=== PATIENT | female | born 1935 | race Hispanic/Latino ===

== ENCOUNTER → 2019-05-22 | Outpatient (CLI) | payer MEDICARE ==
[~2019-05-22] MED LIST: ALDACTONE25 MG PO; AMLODIPINE BESYL5 MG PO; LASIX20 MG PO; LIPITOR20 MG PO; METOPROLOL TART25 MG PO; PEPCID40 MG; POTASSIUM CHLO10 ME1 PO; POTASSIUM CHLO20 ME1; TORSEMIDE20 MG; WARFARIN SODIUM2 MG PO; WARFARIN SODIUM4 MG PO
--- NOTE | 2019-05-22 16:56 | Diagnostic Imaging Report ---
EXAMINATION: CHEST 2 VIEWS INDICATION: Shortness of breath COMPARISON: None FINDINGS: LINES/TUBES:Left chest pacemaker LUNGS:The lungs are well-inflated. No focal consolidation or pulmonary edema. PLEURA:No pleural effusion or pneumothorax. MEDIASTINUM:The heart is enlarged. Atherosclerotic calcifications of the thoracic aorta. Postoperative findings of prior CABG. BONES/SOFT TISSUES:Diffuse osteopenia. Loss of vertebral body height at multiple thoracic spine levels with prior vertebral augmentation at likely T10 and T11. ABDOMEN:No free air under the diaphragm. IMPRESSION: No focal pneumonia or pulmonary edema. Cardiomegaly Signed by: Bam Saucedo MD on 05/22/2019 4:53 PM
== END ==
LOC: RAD 15:59
PROVIDERS: ATTEND Internal Medicine Interventional Cardiology
DX: R06.02 Shortness of breath (principal); J90 Pleural effusion, not elsewhere classified
CPT/HCPCS: 71046

== ENCOUNTER 2020-10-22 09:49 | Inpatient (IN) | payer MEDICARE ==
[~2020-10-22] VITALS: Ht 139.7 cm; Wt 46.9 kg
[~2020-10-22 09:49] MED LIST changes: +FUROSEMIDE40 MG PO; +METOPROLOL SUCC50 MG PO; +POTASSIUM CITR10 MEQ PO; +XARELTO20 MG
[2020-10-22 10:13] LABS: BASOPHILS % 0.1 % (0.0-1.0); HEMATOCRIT 27.6 % (34.2-44.1); LYMPHOCYTES # (AUTO) 0.2 (1.0-3.2); LYMPHOCYTES % 1.1 % (18.0-39.1); MEAN CORPUSCULAR HEMOGLOBIN 25.2 pg (28-32); MEAN CORPUSCULAR HGB CONC 32.6 g/dL (31-35); MEAN CORPUSCULAR VOLUME 77.3 fL (81-99); MONOCYTES # (AUTO) 0.3 (0.2-0.8); MONOCYTES % 2.4 % (4.4-11.3); NEUTROPHILS # (AUTO) 13.6 (2.1-6.9); NEUTROPHILS % 95.6 % (38.7-80.0); PLATELET COUNT 324 x10e3/uL (140-360); RED BLOOD COUNT 3.57 x10e6/uL (3.6-5.1); RED CELL DISTRIBUTION WIDTH 15.5 % (11.7-14.4)
[2020-10-22 10:32] LABS: ALBUMIN 3.4 g/dL (3.5-5.0); ALBUMIN/GLOBULIN RATIO 0.9 (0.8-2.0); ANION GAP 16.6 mmol/L (8-16); CALCIUM 8.6 mg/dL (8.4-10.2); CREATININE, SERUM 1.68 mg/dL (0.57-1.11)
[2020-10-22 10:40] LABS: B-TYPE NATRIURETIC PEPTIDE2 1101.8 pg/mL (0-100)
[2020-10-22 10:46] LABS: POTASSIUM 1.6 mmol/L (3.5-5.1)
[2020-10-22] MEDS ORDERED: POTASSIUM CHLORIDE 20MEQ/100ML 200 ML IV ONE ×2 (11:00→22:30)
[2020-10-22 11:02] LABS: FREE THYROXINE INDEX 2.8052 (1.4-3.8); THYROID STIMULATING HORMONE 0.444 uIU/mL (0.350-4.940)
[2020-10-22] MEDS ORDERED: CEFEPIME 1GM/NS 0.9% 50 ML 50 ML IV STA (11:08)
[2020-10-22] MEDS ORDERED: CEFEPIME HCL 1GM 1 GM in SODIUM CHLORIDE 0.9% 50ML 50 ML IV SCH (11:15)
[2020-10-22 11:19] LABS: SALICYLATE < 5.0 mg/dL (0-30)
[2020-10-22 13:07] LABS: BURR CELLS SLIG; LYMPHOCYTES % (MANUAL) 4 % (19-48); MONOCYTES % (MANUAL) 4 % (3.4-9.0); NEUTROPHILS % (MANUAL) 92 % (40-74); PLATELET MORPHOLOGY COMMENT FEW LARGE; POLYCHROMASIA MODERATE
[2020-10-22 13:08] LABS: PLATELET ESTIMATE ADEQUATE
[2020-10-22 16:12] LABS: CLARITY,URINE CLEAR (CLEAR); COLOR,URINE YELLOW (YELLOW); KETONES,URINE NEGATIVE (NEGATIVE); LEUKOCYTE ESTERASE ,URINE NEGATIVE (NEGATIVE); NITRITE,URINE NEGATIVE (NEGATIVE); PROTEIN,URINE DIPSTICK NEGATIVE (NEGATIVE); URINE UROBILINOGEN 0.2 mg/dL (0.2 - 1)
[2020-10-22 16:13] LABS: AMPHETAMINES SCREEN,URINE NEGATIVE (NEGATIVE); BENZODIAZEPINES SCREEN,URINE NEGATIVE (NEGATIVE); PHENCYCLIDINE SCREEN,URINE NEGATIVE (NEGATIVE)
[2020-10-22] MEDS ORDERED: ONDANSETRON HCL INJ 2MG/ML 2ML 2 MG/ML VIAL IV NR (18:32)
[2020-10-22] MEDS ORDERED: DOCUSATE SODIUM 100 MG CAP PO PRN (18:45)
[2020-10-22] MEDS: SODIUM CHLORIDE 0.9% 1000ML 1,000 ML IV SCH (18:54)
[2020-10-22 21:30] VITALS: BP 90/49
[2020-10-22 21:43] LABS: BASOPHILS % 0.1 % (0.0-1.0); HEMOGLOBIN 7.4 g/dL (12.0-16.0); LYMPHOCYTES # (AUTO) 0.7 (1.0-3.2); LYMPHOCYTES % 3.9 % (18.0-39.1); MEAN CORPUSCULAR HEMOGLOBIN 25.8 pg (28-32); MEAN CORPUSCULAR HGB CONC 32.9 g/dL (31-35); MEAN CORPUSCULAR VOLUME 78.4 fL (81-99); MONOCYTES # (AUTO) 0.8 (0.2-0.8); MONOCYTES % 4.9 % (4.4-11.3); NEUTROPHILS # (AUTO) 15.4 (2.1-6.9); NEUTROPHILS % 90.5 % (38.7-80.0); PLATELET COUNT 244 x10e3/uL (140-360); RED BLOOD COUNT 2.87 x10e6/uL (3.6-5.1); RED CELL DISTRIBUTION WIDTH 15.8 % (11.7-14.4)
[2020-10-22 21:55] LABS: HEMATOCRIT 22.5 % (34.2-44.1)
[2020-10-22 22:06] LABS: ALBUMIN 2.6 g/dL (3.5-5.0); ALBUMIN/GLOBULIN RATIO 0.9 (0.8-2.0); ANION GAP 11.7 mmol/L (8-16); CALCIUM 7.8 mg/dL (8.4-10.2); CREATININE, SERUM 1.35 mg/dL (0.57-1.11)
[2020-10-22 22:07] LABS: POTASSIUM 1.7 mmol/L (3.5-5.1)
[2020-10-22 22:16] LABS: MAGNESIUM 1.3 MG/DL (1.3-2.1)
[2020-10-22] MEDS ORDERED: POTASSIUM CHLORIDE 20 MEQ TAB CR PO STA (22:25)
[2020-10-22 22:29] VITALS: BP 90/49
[2020-10-23 00:30] VITALS: BP 106/52
[2020-10-23] MEDS: ACETAMINOPHEN 325 MG TAB PO PRN (01:00)
[2020-10-23] MEDS ORDERED: POTASSIUM CHLORIDE 20 MEQ TAB CR PO SCH (04:00)
[2020-10-23 04:30] VITALS: BP 109/56
[2020-10-23 04:50] LABS: BASOPHILS % 0.1 % (0.0-1.0); EOSINOPHILS % 0.1 % (0.0-6.0); HEMATOCRIT 25.6 % (34.2-44.1); HEMOGLOBIN 8.3 g/dL (12.0-16.0); LYMPHOCYTES # (AUTO) 0.6 (1.0-3.2); MEAN CORPUSCULAR HEMOGLOBIN 25.5 pg (28-32); MEAN CORPUSCULAR HGB CONC 32.4 g/dL (31-35); MEAN CORPUSCULAR VOLUME 78.5 fL (81-99); MONOCYTES # (AUTO) 0.9 (0.2-0.8); MONOCYTES % 5.6 % (4.4-11.3); NEUTROPHILS # (AUTO) 13.8 (2.1-6.9); NEUTROPHILS % 89.6 % (38.7-80.0); PLATELET COUNT 271 x10e3/uL (140-360); RED BLOOD COUNT 3.26 x10e6/uL (3.6-5.1); RED CELL DISTRIBUTION WIDTH 15.8 % (11.7-14.4)
[2020-10-23 05:18] LABS: MAGNESIUM 1.4 MG/DL (1.3-2.1); PHOSPHORUS 3.4 MG/DL (2.3-4.7)
[2020-10-23 05:47] LABS: ANION GAP 14.4 mmol/L (8-16); CALCIUM 8.2 mg/dL (8.4-10.2); CREATININE, SERUM 1.39 mg/dL (0.57-1.11)
[2020-10-23 05:50] LABS: POTASSIUM 2.4 mmol/L (3.5-5.1)
[2020-10-23] MEDS ORDERED: POTASSIUM CHLORIDE 20 MEQ TAB CR PO STA (08:04)
[2020-10-23] MEDS ORDERED: POTASSIUM CHLORIDE 20MEQ/100ML 300 ML IV ONE (08:15)
[2020-10-23] MEDS: METOPROLOL SUCCINATE 50 MG TAB XL PO SCH (08:30)
[2020-10-23 08:39] LABS: CREATINE KINASE MB 1.3 ng/mL (0-5.0)
[2020-10-23] MEDS ORDERED: MAGNESIUM SULFATE 2GM/50ML 50 ML IV ONE (09:30)
[2020-10-23] MEDS: SODIUM CHLORIDE 0.9% 1000ML 1,000 ML IV SCH (10:24)
[2020-10-23] MEDS ORDERED: MAGNESIUM SULFATE 2GM/50ML IV ONE (11:00)
[2020-10-23] MEDS ORDERED: POTASSIUM PHOSPHATE 20 MM in SODIUM CHLORIDE 0.9% 250ML 250 ML IV SCH (11:00)
[2020-10-23] MEDS ORDERED: PIPERACILLIN/TAZO 2.25 GM 50 ML IV SCH (11:15)
[2020-10-23] MEDS ORDERED: AZITHROMYCIN 500MG/NS 250 ML 250 ML IV SCH (11:15)
[2020-10-23 13:10] VITALS: BP 110/55
[2020-10-23 14:16] LABS: CREATININE,URINE RANDOM 31.51 mg/dL (47-110)
[2020-10-23 14:26] VITALS: BP 110/55
[2020-10-23 16:00] VITALS: BP 100/69
[2020-10-23] MEDS: RIVAROXABAN 10 MG TABLET PO SCH (17:04)
[2020-10-23] MEDS: FAMOTIDINE 20 MG TAB PO SCH (17:04)
[2020-10-23 19:00] LABS: ANION GAP 14.4 mmol/L (8-16); CALCIUM 7.8 mg/dL (8.4-10.2); CREATININE, SERUM 1.32 mg/dL (0.57-1.11)
[2020-10-23 19:01] LABS: POTASSIUM 5.4 mmol/L (3.5-5.1)
[2020-10-23 19:19] LABS: CREATINE KINASE MB 1.3 ng/mL (0-5.0)
[2020-10-23] MEDS ORDERED: PIPERACILLIN/TAZOBACTAM SOD 2.25 GM VIAL ONE (19:59)
[2020-10-23 20:07] VITALS: BP 69/53
[2020-10-23] MEDS: PIPERACILLIN/TAZOBACTAM 2.25 GM in SODIUM CHLORIDE 0.9% 50ML 50 ML IV SCH (20:19)
[2020-10-24] VITALS (8 sets, daily range): BP systolic 91–124; BP diastolic 51–68
[2020-10-24] MEDS: SODIUM CHLORIDE 0.9% 1000ML 1,000 ML IV SCH (01:39)
[2020-10-24 04:38] LABS: BASOPHILS % 0.1 % (0.0-1.0); EOSINOPHILS # (AUTO) 0.1 (0.0-0.4); EOSINOPHILS % 0.9 % (0.0-6.0); HEMATOCRIT 23.5 % (34.2-44.1); HEMOGLOBIN 7.5 g/dL (12.0-16.0); LYMPHOCYTES # (AUTO) 0.8 (1.0-3.2); LYMPHOCYTES % 8.4 % (18.0-39.1); MEAN CORPUSCULAR HEMOGLOBIN 25.4 pg (28-32); MEAN CORPUSCULAR HGB CONC 31.9 g/dL (31-35); MEAN CORPUSCULAR VOLUME 79.7 fL (81-99); MONOCYTES # (AUTO) 0.8 (0.2-0.8); MONOCYTES % 8.2 % (4.4-11.3); NEUTROPHILS # (AUTO) 7.7 (2.1-6.9); NEUTROPHILS % 81.8 % (38.7-80.0); PLATELET COUNT 279 x10e3/uL (140-360); RED BLOOD COUNT 2.95 x10e6/uL (3.6-5.1); RED CELL DISTRIBUTION WIDTH 16.1 % (11.7-14.4)
[2020-10-24] MEDS: PIPERACILLIN/TAZOBACTAM 2.25 GM in SODIUM CHLORIDE 0.9% 50ML 50 ML IV SCH ×3 (04:51→19:29)
[2020-10-24 04:57] LABS: ALBUMIN 2.7 g/dL (3.5-5.0); ALBUMIN/GLOBULIN RATIO 0.9 (0.8-2.0); ANION GAP 12.3 mmol/L (8-16); CREATININE, SERUM 1.33 mg/dL (0.57-1.11); POTASSIUM 4.3 mmol/L (3.5-5.1)
[2020-10-24 05:21] LABS: MAGNESIUM 1.8 MG/DL (1.3-2.1)
[2020-10-24 05:33] LABS: THYROID STIMULATING HORMONE 0.536 uIU/mL (0.350-4.940)
[2020-10-24] MEDS: FAMOTIDINE 20 MG TAB PO SCH ×2 (08:20→16:13)
[2020-10-24] MEDS: METOPROLOL SUCCINATE 50 MG TAB XL PO SCH (09:00)
[2020-10-24] MEDS: RIVAROXABAN 10 MG TABLET PO SCH (16:13)
[2020-10-24] MEDS: ACETAMINOPHEN 325 MG TAB PO PRN (19:22)
[2020-10-24] MEDS ORDERED: SODIUM CHLORIDE 0.9% 50ML 50 ML ONE (19:33)
[2020-10-25] VITALS (7 sets, daily range): BP systolic 103–151; BP diastolic 48–67
[2020-10-25] MEDS: PIPERACILLIN/TAZOBACTAM 2.25 GM in SODIUM CHLORIDE 0.9% 50ML 50 ML IV SCH (03:59)
[2020-10-25 06:01] LABS: BASOPHILS % 0.1 % (0.0-1.0); EOSINOPHILS # (AUTO) 0.2 (0.0-0.4); EOSINOPHILS % 2.3 % (0.0-6.0); HEMOGLOBIN 7.1 g/dL (12.0-16.0); LYMPHOCYTES # (AUTO) 0.8 (1.0-3.2); MEAN CORPUSCULAR HEMOGLOBIN 25.7 pg (28-32); MEAN CORPUSCULAR HGB CONC 32.3 g/dL (31-35); MEAN CORPUSCULAR VOLUME 79.7 fL (81-99); MONOCYTES # (AUTO) 0.6 (0.2-0.8); MONOCYTES % 7.8 % (4.4-11.3); NEUTROPHILS # (AUTO) 5.9 (2.1-6.9); NEUTROPHILS % 77.9 % (38.7-80.0); PLATELET COUNT 269 x10e3/uL (140-360); RED BLOOD COUNT 2.76 x10e6/uL (3.6-5.1); RED CELL DISTRIBUTION WIDTH 16.2 % (11.7-14.4)
[2020-10-25 06:35] LABS: ANION GAP 11.1 mmol/L (8-16); CALCIUM 8.2 mg/dL (8.4-10.2); CREATININE, SERUM 1.05 mg/dL (0.57-1.11); POTASSIUM 3.1 mmol/L (3.5-5.1)
[2020-10-25 07:06] LABS: MAGNESIUM 1.6 MG/DL (1.3-2.1); PHOSPHORUS 2.7 MG/DL (2.3-4.7)
[2020-10-25] MEDS: METOPROLOL SUCCINATE 50 MG TAB XL PO SCH (09:20)
[2020-10-25] MEDS: FAMOTIDINE 20 MG TAB PO SCH ×2 (09:20→17:11)
[2020-10-25] MEDS ORDERED: POTASSIUM CHLORIDE 20 MEQ TAB CR PO ONE (09:30)
[2020-10-25] MEDS ORDERED: ACETAMINOPHEN 325 MG TAB PO STA (10:31)
[2020-10-25] MEDS ORDERED: SODIUM CHLORIDE 0.9% 250ML 250 ML IV ONE (10:45)
[2020-10-25] MEDS ORDERED: FUROSEMIDE INJ 10 MG/ML 2 ML VIAL IV PRN (10:45)
[2020-10-25] MEDS: FUROSEMIDE INJ 10 MG/ML 2 ML VIAL IV PRN ×2 (17:11→19:34)
[2020-10-25] MEDS: POTASSIUM CHLORIDE 20 MEQ TAB CR PO SCH (17:11)
[2020-10-25] MEDS: RIVAROXABAN 10 MG TABLET PO SCH (17:11)
[2020-10-26] VITALS (8 sets, daily range): BP systolic 124–159; BP diastolic 59–79
[2020-10-26 05:00] LABS: BASOPHILS % 0.3 % (0.0-1.0); EOSINOPHILS # (AUTO) 0.3 (0.0-0.4); EOSINOPHILS % 3.5 % (0.0-6.0); HEMATOCRIT 29.7 % (34.2-44.1); HEMOGLOBIN 9.6 g/dL (12.0-16.0); LYMPHOCYTES # (AUTO) 1.1 (1.0-3.2); MEAN CORPUSCULAR HEMOGLOBIN 26.2 pg (28-32); MEAN CORPUSCULAR HGB CONC 32.3 g/dL (31-35); MEAN CORPUSCULAR VOLUME 81.1 fL (81-99); MONOCYTES # (AUTO) 0.5 (0.2-0.8); NEUTROPHILS # (AUTO) 5.4 (2.1-6.9); NEUTROPHILS % 73.3 % (38.7-80.0); PLATELET COUNT 250 x10e3/uL (140-360); RED BLOOD COUNT 3.66 x10e6/uL (3.6-5.1); RED CELL DISTRIBUTION WIDTH 15.8 % (11.7-14.4)
[2020-10-26 05:50] LABS: ALBUMIN 2.9 g/dL (3.5-5.0); ALBUMIN/GLOBULIN RATIO 0.9 (0.8-2.0); ANION GAP 14.2 mmol/L (8-16); CALCIUM 8.8 mg/dL (8.4-10.2); CREATININE, SERUM 1.05 mg/dL (0.57-1.11); MAGNESIUM 1.5 MG/DL (1.3-2.1); POTASSIUM 3.2 mmol/L (3.5-5.1)
[2020-10-26] MEDS: FAMOTIDINE 20 MG TAB PO SCH ×2 (08:26→16:04)
[2020-10-26] MEDS: METOPROLOL SUCCINATE 50 MG TAB XL PO SCH (08:26)
[2020-10-26] MEDS: POTASSIUM CHLORIDE 20 MEQ TAB CR PO SCH ×2 (08:27→16:07)
[2020-10-26] MEDS: IRON SUCROSE 100 MG in SODIUM CHLORIDE 0.9% 100 ML 100 ML IV SCH (11:41)
[2020-10-26] MEDS ORDERED: POTASSIUM CHLORIDE 20 MEQ TAB CR PO STA (15:26)
[2020-10-26] MEDS ORDERED: MAGNESIUM SULFATE 2GM/50ML 50 ML IV ONE (15:30)
[2020-10-26] MEDS: FUROSEMIDE 40 MG TAB PO SCH (16:04)
[2020-10-26] MEDS: RIVAROXABAN 10 MG TABLET PO SCH (17:52)
[2020-10-27] VITALS: BP 144/69
[2020-10-27 04:00] VITALS: BP 113/67
[2020-10-27 06:03] LABS: ANION GAP 14.1 mmol/L (8-16); CALCIUM 8.9 mg/dL (8.4-10.2); CREATININE, SERUM 0.99 mg/dL (0.57-1.11); MAGNESIUM 1.6 MG/DL (1.3-2.1); POTASSIUM 3.1 mmol/L (3.5-5.1)
[2020-10-27 07:45] VITALS: BP 139/59
[2020-10-27 07:51] VITALS: BP 139/59
[2020-10-27] MEDS: FAMOTIDINE 20 MG TAB PO SCH (07:55)
[2020-10-27] MEDS: POTASSIUM CHLORIDE 20 MEQ TAB CR PO SCH (07:55)
[2020-10-27] MEDS: FUROSEMIDE 40 MG TAB PO SCH (07:55)
[2020-10-27] MEDS: METOPROLOL SUCCINATE 50 MG TAB XL PO SCH (07:56)
[2020-10-27] MEDS ORDERED: POTASSIUM CHLORIDE 10MEQ EA PO NR (10:00)
[2020-10-27] MEDS: IRON SUCROSE 100 MG in SODIUM CHLORIDE 0.9% 100 ML 100 ML IV SCH (11:27)
[2020-10-27 11:53] VITALS: BP 118/68
== END 2020-10-27 13:55 | disposition home or self-care (01) | DRG 682 ==
LOC: ER 10:43 → ERHOLD 12:19 → IMCU 10-23 12:43 → MED/SURG2 10-24 13:00
PROVIDERS: ADMIT Internal Medicine; ATTEND Internal Medicine
DX: N17.0 Acute kidney failure with tubular necrosis (principal); I50.23 Acute on chronic systolic (congestive) heart failure; E87.1 Hypo-osmolality and hyponatremia; I13.0 Hypertensive heart and chronic kidney disease with heart failure and stage 1 through stage 4 chronic kidney disease, or unspecified chronic kidney disease; E86.0 Dehydration; R41.0 Disorientation, unspecified; E87.6 Hypokalemia; T50.2X5A Adverse effect of carbonic-anhydrase inhibitors, benzothiadiazides and other diuretics, initial encounter; I25.10 Atherosclerotic heart disease of native coronary artery without angina pectoris; Z95.1 Presence of aortocoronary bypass graft; Z95.0 Presence of cardiac pacemaker; N18.30 Chronic kidney disease, stage 3 unspecified; Z20.822 Contact with and (suspected) exposure to COVID-19
CPT/HCPCS: 36415; 70450; 71045; 71250; 74176; 76770; 80048; 80053; 80307; 80320; 80329; 81001; 82140; 82270; 82550; 82553; 82570; 82607; 82746; 82948; 83540; 83605; 83735; 83880; 84100; 84300; 84436; 84443; 84466; 84479; 84484; 85025; 86850; 86900; 86920; 87040; 93005; 99285; J0456; J0692; J1756; J1940; J2543; J3475; J3480; J7030; J7050; P9016; U0002

== ENCOUNTER 2020-11-18 20:05 | Emergency (ER) | payer MEDICARE ==
[~2020-11-18] VITALS: Ht 139.7 cm; Wt 46.7 kg
[2020-11-18] MEDS ORDERED: ASPIRIN 81 MG CHEW TAB PO ONE (20:15)
[2020-11-18] MEDS ORDERED: SODIUM CHLORIDE 0.9% 1000ML 2,000 ML ONE (20:33)
[2020-11-18] MEDS ORDERED: SODIUM CHLORIDE 0.9% 1000ML 1,000 ML IV STA (20:34)
[2020-11-18] MEDS ORDERED: VANCOMYCIN 1GM/NS 250 ML 250 ML IV STA (20:34)
[2020-11-18 20:45] LABS: BASOPHILS % 0.1 % (0.0-1.0); EOSINOPHILS % 0.3 % (0.0-6.0); LYMPHOCYTES # (AUTO) 0.6 (1.0-3.2); LYMPHOCYTES % 8.5 % (18.0-39.1); MEAN CORPUSCULAR HEMOGLOBIN 26.9 pg (28-32); MEAN CORPUSCULAR HGB CONC 31.6 g/dL (31-35); MEAN CORPUSCULAR VOLUME 84.9 fL (81-99); MONOCYTES # (AUTO) 0.4 (0.2-0.8); MONOCYTES % 5.3 % (4.4-11.3); NEUTROPHILS # (AUTO) 6.2 (2.1-6.9); NEUTROPHILS % 85.3 % (38.7-80.0); PLATELET COUNT 224 x10e3/uL (140-360); RED BLOOD COUNT 1.86 x10e6/uL (3.6-5.1); RED CELL DISTRIBUTION WIDTH 19.3 % (11.7-14.4)
[2020-11-18] MEDS ORDERED: SODIUM CHLORIDE 0.9% 1000ML 1,000 ML IV SCH (20:45)
[2020-11-18 20:50] LABS: HEMATOCRIT 15.8 % (34.2-44.1)
[2020-11-18 21:01] LABS: ALBUMIN 2.6 g/dL (3.5-5.0); ALBUMIN/GLOBULIN RATIO 1.2 (0.8-2.0); ANION GAP 17.8 mmol/L (8-16); CALCIUM 7.9 mg/dL (8.4-10.2); CREATININE, SERUM 1.99 mg/dL (0.57-1.11)
[2020-11-18 21:06] LABS: POTASSIUM 2.8 mmol/L (3.5-5.1)
[2020-11-18 21:07] LABS: CREATINE KINASE MB 1.6 ng/mL (0-5.0)
[2020-11-18] MEDS ORDERED: POTASSIUM CHLORIDE 20 MEQ TAB CR PO STA ×2 (21:10→23:05)
[2020-11-18] MEDS ORDERED: SODIUM CHLORIDE 0.9% 250ML 250 ML IV ONE (21:15)
[2020-11-18] MEDS ORDERED: POTASSIUM CHLORIDE 20 MEQ TAB CR PO ONE (21:23)
[2020-11-18] MEDS ORDERED: SODIUM CHLORIDE 0.9% 1000ML 1,000 ML IV ONE (21:45)
[2020-11-18] MEDS ORDERED: CEFEPIME HCL 1 GM VIAL IV SCH (22:00)
[2020-11-18 22:11] LABS: CLARITY,URINE SL CLOUDY (CLEAR); COLOR,URINE STRAW (YELLOW); KETONES,URINE NEGATIVE (NEGATIVE); LEUKOCYTE ESTERASE ,URINE SMALL (NEGATIVE); NITRITE,URINE NEGATIVE (NEGATIVE); PROTEIN,URINE DIPSTICK NEGATIVE (NEGATIVE); URINE UROBILINOGEN 0.2 mg/dL (0.2 - 1)
[2020-11-19 03:08] VITALS: BP 106/63
== END 2020-11-19 03:12 | disposition other institution (70) ==
LOC: ER 20:16
DX: R53.1 Weakness (principal); I95.9 Hypotension, unspecified; D64.9 Anemia, unspecified; E87.6 Hypokalemia; I10 Essential (primary) hypertension; I50.9 Heart failure, unspecified; I25.10 Atherosclerotic heart disease of native coronary artery without angina pectoris; Z20.822 Contact with and (suspected) exposure to COVID-19; Z95.1 Presence of aortocoronary bypass graft; Z95.810 Presence of automatic (implantable) cardiac defibrillator
CPT/HCPCS: 36415; 51700; 71045; 80053; 81001; 82550; 82553; 82948; 83605; 83880; 84484; 85025; 86850; 86900; 86920; 87040; 87086; 93005; 99285; J0692; J3370; J7030; J7050; P9016; U0002